=== PATIENT | female | born 2000 | race Two or more races ===

== ENCOUNTER → 2023-04-15 | Outpatient (CLI) | payer OTHER, SELFPAY ==
[2023-04-15 10:22] LABS: Red Blood Cells-Urine 0 SEEN /hpf (0-5)
[2023-04-15 10:31] LABS: Color, Urine Yellow (Yellow); Glucose, Dipstick Normal (Normal); Ketone-Dipstick 15 mg/dl (Negative); Leukocyte Esterase-Dipstick 25 /ul (Negative); Nitrite-Dipstick Positive (Negative); Occult Blood-Urine Negative /ul (Negative); Protein-Dipstick 15 mg/dl (Negative); Urine Clarity Clear (Clear); Urine Urobilinogen 4 mg/dl (Normal)
[2023-04-15 10:32] LABS: Urine Bilirubin Dipstick 3 mg/dL (Negative)
[2023-04-15 10:47] LABS: Bacteria 1+ /hpf (None Seen); Mucous, Urine 2+ /hpf (<or=2+); Squamous Epithelial Cells - UA 0-5 SEEN /hpf (5-10); White Blood Cells 0-5 SEEN /hpf (0-5)
== END | disposition home or self-care (01) ==
LOC: LABSPEC 10:16
PROVIDERS: Referring Provider Physician Assistant; Visit Provider Physician Assistant
DX: R35.0 Frequency of micturition (principal)
CPT/HCPCS: 81001; 87086; 87088; 87186

== ENCOUNTER → 2023-08-20 | Outpatient (CLI) | payer OTHER, SELFPAY ==
--- NOTE | 2023-08-20 14:55 | US_ITS ---
STUDY: ULTRASOUND OF THE FEMALE PELVIS - COMPLETE REASON FOR EXAM: Female, 23 years old. Right pelvic pain; ovarian cyst LMP: August 20, 2023. TECHNIQUE: Transabdominal and Transvaginal TECHNICAL QUALITY: Adequate. COMPARISON: None. FINDINGS: The uterus is anteverted and is in a midline position. The uterus measures 9.2 cm x 5.3 cm x 2.6 cm. Normal uterine cervix. The endometrium measures 5 mm in thickness, and is hyperechoic. There is no demonstrated endometrial mass. There is no demonstrated myometrial mass. I.U.D. - The patient does not have an I.U.D. The right ovary is visualized. The right ovary measures 5.3 cm x 4.7 cm x 2.8 cm. There is a 4.1 cm x 3.9 cm x 2 cm complex right ovarian cyst with septations. Follow-up recommended. There is no visualized right adnexal mass or complex lesion. There is normal arterial and normal venous vascularity. The left ovary is visualized. The left ovary measures 3.7 cm x 2.4 cm x 1.7 cm. There is no left ovarian cyst or ovarian mass. There is a 1.8 cm x 1.3 cm x 1 cm paraovarian cyst. There is normal arterial and normal venous vascularity. There is minimal fluid in the cul-de-sac. The pre void volume of the bladder was 391 ml. US/Pelvic w/ Transvaginal IMPRESSION: 4.1 cm x 3.9 cm x 2.0 cm complex right ovarian cyst. Follow-up recommended. This may be an hemorrhagic cyst. Follicle seen in the left paraovarian tissues. Minimal amount of free fluid is seen in the cul-de-sac. Electronically Signed: Nicko Robles MD at 15:40 EDT ,
== END | disposition home or self-care (01) ==
LOC: US 14:54
PROVIDERS: Referring Provider Nurse Practitioner Family; Visit Provider Nurse Practitioner Family
DX: N83.201 Unspecified ovarian cyst, right side (principal)
CPT/HCPCS: 76830; 76856

== ENCOUNTER → 2023-08-21 | Outpatient (CLI) | payer OTHER, SELFPAY ==
[2023-08-23 04:07] LABS: Cancer Antigen 125 25.4 U/mL (0.0-38.1); Carcinoembryonic Antigen 1.9 ng/mL (0.0-4.7)
== END | disposition home or self-care (01) ==
LOC: LAB 11:46
PROVIDERS: Referring Provider Nurse Practitioner Family; Visit Provider Nurse Practitioner Family
DX: N83.209 Unspecified ovarian cyst, unspecified side (principal)
CPT/HCPCS: 82378; 86304

== ENCOUNTER → 2023-09-23 | Outpatient (CLI) | payer OTHER, SELFPAY ==
--- NOTE | 2023-09-23 14:10 | US_ITS ---
STUDY: ULTRASOUND OF THE FEMALE PELVIS - COMPLETE REASON FOR EXAM: Female, 23 years old. Ovarian cyst evaluation LMP: September 18, 2023. TECHNIQUE: Transabdominal and Transvaginal TECHNICAL QUALITY: Adequate. COMPARISON: Comparison is made with prior study dated August 20, 2023. FINDINGS: The uterus is anteverted and is in a midline position. The uterus measures 7.9 cm x 4.9 cm x 2.8 cm. Normal uterine cervix. The endometrium measures 8 mm in thickness, and is hyperechoic. There is no demonstrated endometrial mass. There is no demonstrated myometrial mass. I.U.D. - The patient does not have an I.U.D. The right ovary is visualized. The right ovary measures 3.6 cm x 2.4 cm x 1.8 cm. Multiple sub-centimeter follicles are seen. There is no visualized right adnexal mass or complex lesion. There is normal arterial and normal venous vascularity. The left ovary is visualized. The left ovary measures 3.6 cm x 2.4 cm x 1.9 cm. Small follicles are seen. There is evidence of a residual 1.6 cm x 1.3 cm x 1 cm left paraovarian cyst. There is no visualized left adnexal mass or complex lesion. There is normal arterial and normal venous vascularity. There is no fluid in the cul-de-sac. The pre void volume of the bladder was 307 ml. US/Pelvic w/ Transvaginal IMPRESSION: Essentially stable examination. Electronically Signed: Nicko Robles MD at 15:16 EDT ,
== END | disposition home or self-care (01) ==
LOC: US 14:09
PROVIDERS: Visit Provider Nurse Practitioner Family
DX: N83.209 Unspecified ovarian cyst, unspecified side (principal)
CPT/HCPCS: 76830; 76856

== ENCOUNTER → 2023-10-01 | Outpatient (CLI) | payer OTHER, SELFPAY ==
[2023-10-01 11:02] LABS: Vitamin D,25 Hydroxy 30.6 ng/mL
[2023-10-01 11:11] LABS: AST(SGOT) 25 U/L (15-37); Alanine Aminotransfer ALT/SGPT 64 U/L (13-56); Albumin, Serum 3.9 g/dL (3.2-5.0); Alkaline Phosphatase 73 U/L (45-117); Anion Gap 4 (5-15); BUN 10 mg/dL (7-18); BUN/Creat Ratio 13.7 RATIO (10-20); Calcium,Total 9.4 mg/dL (8.5-10.1); Chloride 105 mmol/L (98-107); Cholesterol 190 mg/dL (200); Creatinine, Serum 0.73 mg/dL (0.55-1.02); EST Glomerular Filtration Rate 104 mL/min (>60); Est Glom Filt Rate - Afr Amer 126 mL/min (>60); Glucose 97 mg/dL (74-106); High Density Lipoprotein 62 mg/dL; Potassium 3.7 mmol/L (3.5-5.1); Protein, Total 7.9 g/dL (6.4-8.2); Sodium Level 137 mmol/L (136-145); T4 Free Direct 1.07 ng/dL (0.76-1.46); Thyroid Stim Hormone (TSH) 1.67 uIU/mL (0.358-3.74); Triglycerides 74 mg/dL; Very Low Density Lipoprotein 15 mg/dL (5-40)
[2023-10-06 17:16] LABS: HPV Reflexed? NOT INDICATED
== END | disposition home or self-care (01) ==
PROVIDERS: Referring Provider Nurse Practitioner Family; Visit Provider Nurse Practitioner Family
DX: Z12.4 Encounter for screening for malignant neoplasm of cervix (principal); Z13.29 Encounter for screening for other suspected endocrine disorder; Z13.220 Encounter for screening for lipoid disorders; Z13.1 Encounter for screening for diabetes mellitus; Z13.21 Encounter for screening for nutritional disorder
CPT/HCPCS: 36415; 80053; 80061; 82306; 84439; 84443; 88175; G0145

== ENCOUNTER → 2023-11-13 | Outpatient (CLI) | payer OTHER, SELFPAY ==
[2023-11-15 10:41] LABS: PROGESTERONE 4.2 ng/mL (.)
[2023-11-18 11:59] LABS: PROLACTIN 46.8 ng/mL (4.8-33.4); Testosterone Free 4.5 pg/mL (0.0-4.2)
== END | disposition home or self-care (01) ==
PROVIDERS: Referring Provider Nurse Practitioner Women's Health; Visit Provider Nurse Practitioner Women's Health
DX: N97.0 Female infertility associated with anovulation (principal)
CPT/HCPCS: 36415; 82627; 84144; 84146; 84402; 82626

== ENCOUNTER → 2023-12-09 | Outpatient (CLI) | payer OTHER, SELFPAY | END | disposition home or self-care (01) | LOC: LAB 08:34 | PROVIDERS: Referring Provider Nurse Practitioner Women's Health; Visit Provider Nurse Practitioner Women's Health | DX: E28.2 Polycystic ovarian syndrome (principal) | CPT/HCPCS: 36415; 84146 ==

== ENCOUNTER → 2023-12-26 | Outpatient (CLI) | payer OTHER, SELFPAY | END | disposition home or self-care (01) | LOC: LAB 06:09 | PROVIDERS: Referring Provider Nurse Practitioner Women's Health; Visit Provider Nurse Practitioner Women's Health | DX: N97.9 Female infertility, unspecified (principal) | CPT/HCPCS: 36415 ==

== ENCOUNTER → 2024-03-19 | Outpatient (CLI) | payer OTHER, SELFPAY ==
[2024-03-22 14:07] LABS: PROGESTERONE 0.4 ng/mL (.)
== END | disposition home or self-care (01) ==
LOC: LAB 13:54
PROVIDERS: Referring Provider Nurse Practitioner Women's Health; Visit Provider Nurse Practitioner Women's Health
DX: N97.0 Female infertility associated with anovulation (principal)
CPT/HCPCS: 36415; 84144

== ENCOUNTER → 2024-04-20 | Outpatient (CLI) | payer OTHER, SELFPAY ==
[2024-04-21 14:08] LABS: PROGESTERONE 0.8 ng/mL (.)
== END | disposition home or self-care (01) ==
LOC: LAB 09:50
PROVIDERS: Referring Provider Nurse Practitioner Women's Health; Visit Provider Nurse Practitioner Women's Health
DX: N97.0 Female infertility associated with anovulation (principal)
CPT/HCPCS: 36415; 84144

== ENCOUNTER 2024-05-20 11:06 | Emergency (ER) | payer OTHER, SELFPAY ==
[2024-05-20 11:06] VITALS: BP 124/77; PULSE 87; RESP 14; TEMP 36.4; O2SAT 100; BMI 25.6
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
[2024-05-20 12:47] VITALS: BP 124/70; PULSE 72; RESP 15; TEMP 36.2; O2SAT 99
== END 2024-05-20 12:48 | disposition home or self-care (01) ==
PROVIDERS: Emergency Provider Emergency Medicine; PCP Internal Medicine; Visit Provider Emergency Medicine
DX: S16.1XXA Strain of muscle, fascia and tendon at neck level, initial encounter (principal); S20.20XA Contusion of thorax, unspecified, initial encounter; S70.11XA Contusion of right thigh, initial encounter; V44.5XXA Car driver injured in collision with heavy transport vehicle or bus in traffic accident, initial encounter
CPT/HCPCS: 71046; 72040; 99282

== ENCOUNTER → 2024-05-24 | Outpatient (CLI) | payer OTHER, SELFPAY ==
[2024-05-26 04:07] LABS: PROGESTERONE 11.8 ng/mL (.)
== END | disposition home or self-care (01) ==
LOC: LAB 09:01
PROVIDERS: Registered Nurse; PCP Internal Medicine; Referring Provider Nurse Practitioner Women's Health; Visit Provider Nurse Practitioner Women's Health
DX: N97.0 Female infertility associated with anovulation (principal)
CPT/HCPCS: 36415; 84144

== ENCOUNTER → 2024-06-21 | Outpatient (CLI) | payer OTHER, SELFPAY ==
[2024-06-22 04:07] LABS: PROGESTERONE 12.2 ng/mL (.)
== END | disposition home or self-care (01) ==
LOC: LAB 08:59
PROVIDERS: PCP Internal Medicine; Referring Provider Nurse Practitioner Women's Health; Visit Provider Nurse Practitioner Women's Health
DX: N97.0 Female infertility associated with anovulation (principal)
CPT/HCPCS: 36415; 84144

== ENCOUNTER → 2024-07-20 | Outpatient (CLI) | payer OTHER, SELFPAY ==
[2024-07-21 04:07] LABS: PROGESTERONE 17.1 ng/mL (.)
== END | disposition home or self-care (01) ==
PROVIDERS: PCP Internal Medicine; Referring Provider Nurse Practitioner Women's Health; Visit Provider Nurse Practitioner Women's Health
DX: N97.0 Female infertility associated with anovulation (principal)
CPT/HCPCS: 36415; 84144

== ENCOUNTER → 2024-08-04 | Outpatient (CLI) | payer OTHER, SELFPAY ==
--- NOTE | 2024-08-04 12:00 | RAD_ITS ---
PROCEDURE: SALPINGOGRAM 08/04/2024 REASON FOR EXAM: INFERTILITY TECHNIQUE: One (1) Cine series/run COMPARISON: No relevant prior. FINDINGS: Uterus: Balloon tipped catheter seen in the lower uterine segment. No abnormal intrauterine filling defects. No uterine cornua abnormalities. Fallopian tubes: Normal caliber. Prompt spillage of contrast from the fallopian tubes. Fluoroscopy: 39 sec Dose: 4.93 mGy RAD/Salpingogram IMPRESSION: 1. Normal hysterosalpingogram. Reading Location: [facility]
--- NOTE | 2024-08-04 12:31 | PRO.PCM_ITS ---
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 Speculum was placed in the vagina and the cervix prepped with Betadine and the HSG catheter was easily introduced into the uterus and speculum removed. Radiologist was brought in and while pushing radiopaque dye into the uterus via the HSG catheter the radiologist took multiple images and views and confirmed bilateral tubal patency seen. No gross uterine filling defects or abnormalities were seen. All in struments removed from the vagina and the uterus without complication. Patient tolerated the procedure well. Procedure findings: it appears that there are patent bilateral fallopian tubes, normal uterus, normal cervix. Complications Complications: No
== END | disposition home or self-care (01) ==
LOC: RAD 11:57
PROVIDERS: PCP Internal Medicine; Referring Provider Nurse Practitioner Women's Health; Visit Provider Nurse Practitioner Women's Health
DX: N97.0 Female infertility associated with anovulation (principal)
CPT/HCPCS: 58340; 74740

== ENCOUNTER → 2024-08-26 | Outpatient (CLI) | payer OTHER, SELFPAY | END | disposition home or self-care (01) | LOC: LABSPEC 16:30 | PROVIDERS: PCP Internal Medicine; Visit Provider Physician Assistant Surgical | DX: R39.15 Urgency of urination (principal) | CPT/HCPCS: 87086 ==

== ENCOUNTER → 2024-09-30 | Outpatient (CLI) | payer OTHER, SELFPAY ==
[2024-09-30 12:16] LABS: Absolute Neutrophil Count 5.5 X10^3/uL (2.0-7.7); Basophil# 0.02 X10^3/uL; Basophil% 0.3 % (0-1); Eosinophil# 0.04 X10^3/uL; Eosinophils% 0.5 % (0-5); Hematocrit 40.1 % (37-47); Hemoglobin 13.6 g/dL (12.0-15.0); Lymphocyte % 16.3 % (19-41); Mean Corp Hgb Conc 33.9 g/dL (32-36); Mean Corpuscular Hgb 30.5 pg (27.0-32.0); Mean Corpuscular Volume 89.9 fL (81-99); Mean Platelet Vol. 9.4 fl (6.2-12.0); Monocyte# 0.65 X10^3/uL; Monocyte% 8.8 % (0-10); NRBC Flagged by Analyzer 0 % (0-5); Neutrophil # 5.45 X10^3/uL (2.7-7.7); Neutrophil % 73.8 % (47-70); Platelet Count 320 K/mm3 (150-450); RBC Distribution Width CV 12.4 % (11.6-14.6); RBC Distribution Width SD 40.5 fl (35.1-43.9); Red Blood Count 4.46 M/mm3 (4.2-5.4); White Blood Count 7.4 K/mm3 (4.4-11.0)
[2024-09-30 13:25] LABS: Hemoglobin A1c 5.1 % (<=5.6)
[2024-09-30 13:31] LABS: HIV Nonreactive (Nonreactive); Hepatitis B Surface Antigen Nonreactive (Nonreactive); Hepatitis C Antibody Nonreactive (Nonreactive); Rubella IgG REAC (Nonreactive); Syphilis Antibodies Nonreactive (Nonreactive)
--- OUTSIDE RECORDS SUMMARY | 2024-09-30 19:23 | XMS RPT_ITS | CCD ---
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 Recent annual exam and pap with health screen labs/nl with Kasey Barboza NP Menses every 28-30 days lasting 4 days. No contraction X 2 years and actively attempting X 10 months. Home OPT does not show ovulation No previous pregnancies for patient or (Bryson) Dysmenorrhea: some cramping. 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 [employer] surgery any additional risk factors identified: no Female Reproductive History Last Menstrual Period: 10/22/23 Cycle Length: 21-35 Questions: metorrhagia: No, sexually active: Yes, dyspareunia: No and PCB: No History 0 Elective abortions Hx Para Spontaneous abortions Hx # Term Pregnancies Ectopic pregnancies Hx # Pregnancies Multiple births # of living children ROS Const Constitutional: Reports system reviewed and no additional complaints, except as documented Eyes Eyes: Reports system reviewed and no additional complaints, except as documented GI GI: Denies abdominal pain or change in bowel habits : Reports as per HPI Exam Const General: cooperative and no acute distress Orientation: oriented x3 HENMT Head: normal to inspection and normocephalic Eyes General: appearance normal, both eyes and all related structures Neck Neck: normal visual inspection Resp Effort Inspection: normal respiratory effort Neuro Cognition: normal cognition Speech: speech normal Psych Appearance: grossly normal Mood: congruent mood Affect: normal affect Speech and Movement: speech and movement normal Attitude: cooperative Judgment: judgment good Coding Level of Care Code Off vis,est,level 4 Diagnoses PCOS (polycystic ovarian syndrome) E28.2 Cyst of ovary, unspecified laterality N83.209 Laterality: unspecified laterality 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 Discussed letrozole Plan Will get day 21 progesterone tomorrow. Today's OPT was negative Day 3 labs and also semen analysis for partner (Bryson Berg) Discussed use, benefits, risks and side effects of letrozole. Written information given. Management dep (more content not included)... Normal [facility] Basophil percentageOrdered B y: Suleiman Connelly on 04-15-2023 Basophil percentage 0-5 SEEN /hpf 0-5 [facility] Bilirubin Test strip Ql (U)O rdered By: Suleiman Connelly on 04-15-2023 Bilirubin Ql (U) 3 mg/dL Negative [facility] Comment on above: COLOR OF URINE MAY A FFECT DIPSTICK RESULTS. Culture, urineOrdered By: St ishan Connelly on 04-15-2023 Bacteria identified Cx Nom (U) Presumptive E. coli [facility] Ketones Test strip Ql (U)Ord ered By: Suleiman Connelly on 04-15-2023 Ketones Ql (U) 15 mg/dl Negative [facility] - Chemistry and C hemistry - challengeon 04-15-2023 HCG ( test) Ql (U) Negative [facility] Bilirubin Ql (U) Negative [facility] Glucose Ql (U) Negative [facility] Ketones Ql (U) Negative [facility] pH (U) 6.0 [pH] [facility] Specific gravity (U) [Rel density] 1.020 [facility] Urobilinogen (U) [Mass/Vol] Negative [facility] - Hematology and Cell countson 04-15-2023 Hemoglobin Ql (U) Negative [facility] - Specimen inform ationon 04-15-2023 Clarity (U) Clear [facility] Color (U) ORANGE [facility] - Urinalysison Nitrite Ql (U) Negative [facility] Protein Ql (U) Negative [facility] Mucus LM Ql (Urine sed)Order ed By: Suleiman Connelly on 04-15-2023 Mucus Ql (Urine sed) 2+ /hpf [facility] Nitrite Test strip Ql (U)Ord ered By: Suleiman Connelly on 04-15-2023 Nitrite Ql (U) Positive Negative [facility] No Panel Informationon 04-15 Urine Leukocytes Negatve [facility] Urine Non-Hemolyzed Blood Negative [facility] Protein Test strip Ql (U)Ord ered By: Suleiman Connelly on 04-15-2023 Protein Ql (U) 15 mg/dl Negative [facility] Squamous epithelial cells de tection in urine sediment by light microscopyOrdered By: Suleiman Connelly on 04-15-2023 Epithelial cells.squamous LM Ql (Urine sed) 0-5 SEEN /hpf 5-10 [facility] Urine blood detectionOrdered By: Suleiman Connelly on 04-15-2023 RBC Ql (U) Negative Negative [facility] RBC Ql (U) 0 SEEN /hpf 0-5 [facility] Urine clarityOrdered By: Kane Connelly on 04-15-2023 Clarity (U) Clear Clear [facility] Urine color determinationOrd ered By: Suleiman Connelly on 04-15-2023 Color (U) Yellow Yellow [facility] Urine glucose detectionOrder ed By: Suleiman Connelly on 04-15-2023 Glucose Ql (U) Normal mg/dl Normal [facility] Urine leukocyte esterase det ection by dipstickOrdered By: Suleiman Connelly on 04-15-2023 Leukocyte esterase Test strip Ql (U) 25 /ul Negative [facility] Urine pHOrdered By: Suleiman chambers on 04-15-2023 pH (U) 6.0 [pH] 5.0 - 8.0 [facility] Urine sediment bacteria coun t by microscopy (number/high power field)Ordered By: Suleiman Connelly on 04-15-2023 Bacteria LM.HPF (Urine sed) [#/Area] 1 /[HPF] None Seen [facility] Urine specific gravity measu rementOrdered By: Suleiman Connelly on 04-15-2023 Specific gravity (U) [Rel density] 1.020 1.002-1.030 [facility] Urobilinogen Auto test strip Ql (U)Ordered By: Suleiman Connelly on 04-15-2023 Urobilinogen Ql (U) 4 mg/dl Normal [facility] POCT URINALYSIS DIPSTICKon 0 12-07-2021 BILIRUBIN, POC Negative Normal Negative [facility] Comment on above: Performed By: #### P OC5 #### [address] [address] BLOOD URINE, POC Negative Normal Negative [facility] Comment on above: Performed By: #### P OC5 #### [address] [address] CLARITY, POC Clear Normal [facility] Comment on above: Performed By: #### P OC5 #### [address] [address] COLOR, POC Yellow Normal [facility] Comment on above: Performed By: #### P OC5 #### [address] [address] GLUCOSE URINE, POC Negative Normal Negative [facility] Comment on above: Performed By: #### P OC5 #### [address] [address] LEUKOCYTE EST, POC Trace Abnormal Negative [facility] Comment on above: Performed By: #### P OC5 #### [address] [address] NITRITE, POC Negative Normal Negative [facility] Comment on above: Performed By: #### P OC5 #### [address] [address] PH, POC 6.5 Normal [facility] Comment on above: Performed By: #### P OC5 #### [address] [address] PROTEIN, POC Negative Normal Negative [facility] Comment on above: Performed By: #### P OC5 #### [address] [address] SPECIFIC GRAVITY, POC 1.[address] [facility] Comment on above: Performed By: #### P OC5 #### [address] [address] URINE KETONES, POC Negative Normal Negative [facility] Comment on above: Performed By: #### P OC5 #### [address] [address] UROBILINOGEN, POC 0.2 Normal 0.2-1.0 [facility] Comment on above: Performed By: #### P OC5 #### [address] [address] Urinalysis macro (dipstick) panel (U)on 12-07-2021 Bilirubin, UA Negative Negative [facility] Blood, UA Negative Negative [facility] Clarity, UA Clear [facility] Color, UA Yellow [facility] Glucose, UA Negative Negative [facility] Interpretation and review of laboratory results Abnormal [facility] Ketones (U) [Mass/Vol] Negative Negative [facility] Leukocytes, UA Trace Abnormal Negative [facility] Nitrite, UA Negative Negative [facility] pH, UA 6.5 [facility] Protein, UA Negative Negative [facility] Spec Grav, UA 1.020 [facility] Urobilinogen, UA 0.2 0.2 - 1.0 [facility] HEPATITIS B SURFACE ANTIBODY on 06-11-2021 HEPATITIS B VIRUS SURFACE AB PRESENCE IN SERUM Non-Reactive Abnormal Reactive [facility] Comment on above: Result Comment: REFERENCE RANGE: NONREACTIVE: Patient is considered not immune to infection with HBV. REACTIVE: Patient is considered to be immune to infection with HBV. Performed By: #### L [id number] #### [facility] [address] [place] [address] RUBELLA ANTIBODY, IGGon RUBELLA IGG SCREEN Reactive Normal [facility] Comment on above: Result Comment: *Non-Reactive: Antibody level may be insufficient to provide protection against Rubella virus infection. *Indeterminate: Repeat testing in 1-2 weeks may help clarify. *Reactive: Indicates current or past infection or vaccination. Performed By: #### L [id number] #### [facility] [address] [place] [address] OBSOLETEon 01-14-2021 OBSOLETE Refill (NATALY) CAROLINA MARTINEZ ([id number]) 1 F Date Time Provider Department 01/14/21 JUDITH BUTLER During your visit today, we recorded the following information about you: Allergies As of Date: 01/14/2021 (No Known Allergies) Date Reviewed: 11/21/2020 Reviewed by: Judith Butler APRN.CHAIR INSPECTOR - Fully Assessed Reason for Visit: Refill Request [94] Visit Diagnosis:Encounter for surveillance of contraceptive pills [Z30.41] Prescriptions as of 01/15/2021 - Desogestrel-Ethinyl Estradiol (APRI) 0.15-0.03 mg per tablet Take 1 tablet by mouth once daily. Problem List As Of Date 01/14/2021 Noted Resolved Gastroesophageal reflux disease without esophag*07/08/2016 Acne vulgaris [L70.0] 07/08/2016 Encounter Status:Closed by LEANNE MIDDLETON RN on 01/15/21 [facility] CNOVon 11-21-2020 CNOV Office Visit ([facility] ) CAROLINA MARTINEZ [place] ([id number]) 1 F Date Time Provider Department 11/21/20 1:00 PM JUDITH BUTLER During your visit today, we recorded the following information about you: Blood pressure Weight Height Last Period 11668 54.4 kg 1.588 m 11/02/20 Judith Butler APRN.CHAIR INSPECTOR 11/21/2020 1:43 PM Signed Carolina is a 20 year old who presents for an annual gynecologic exam without complaints. Getting and graduating from [employer] for ultrasound - both in August. Presents: with parent Menses: cycles every 28 days and 2-3 days of flow. Contraception: combined hormonal contraceptives HPV vaccine: No Last pap smear: never Sexually active: Never OB History T0 L0 SAB0 TAB0 Ectopic0 Multiple0 Live Births0 PAST MEDICAL HISTORY Diagnosis Date - Acid reflux - acne PAST SURGICAL HISTORY Procedure Laterality Date - NONE FAMILY HISTORY Problem Relation Age of Onset - Asthma Brother - Allergies Brother - Hypertension Mother - Hyperlipidemia Mother - Hypertension Father - other (Gastric Ulcer) Father - other (Reflux) Father - Hypertension Maternal Grandmother - Hypertension Maternal Grandfather - Diabetes Paternal Grandmother - GI Paternal Grandmother - Breast Cancer Paternal Grandmother 65 - Diabetes Paternal Grandfather - Heart Paternal Grandfather MA - No Known Problems Sister - Asthma Brother - Allergies Brother SOCIAL HISTORY Social History Tobacco Use - Smoking status: Never Smoker - Smokeless tobacco: Never Used Vaping Use - Vaping Use: Never used Substance Use Topics - Alcohol use: No - Drug use: No REVIEW OF SYSTEMS Abdomen: No bloating, early satiety, indigestion, or increased flatulence. No abdominal pain, nausea, vomiting, diarrhea, or constipation. Bladder: No dysuria, gross hematuria, urinary frequency, urinary urgency, or incontinence. Breast: No breast lumps, nipple d/c, overlying skin changes, redness or skin retraction. Allergies and current medication updated:Yes EXAM: BP 116/68 Ht 5' 2.5 (1.59m) Wt 120 lb (54.4kg) LMP 11/02/2020 BMI 21.59 kg/(m2). GENERAL: pleasant, in no apparent distress HEENT: Normocephalic, atraumatic, mucus membranes moist and no lesions NECK: Supple, full range of motion, no adenopathy and thyroid normal DERMATOLOGY: Normal, without lesions, non-icteric and non-hirsute BREAST: deferred CHEST: Normal inspiratory effort ABDOMEN: soft and non-tender PELVIC: deferred BIMANUAL: deferred NEURO: alert and oriented x3,exam grossly non-focal EXTREMITIES: normal ASSESSMENT/PLAN: 1) Health maintenance: Pap starting at the age of 21. Safe sex practices reviewed. Nutrition, exercise, and routine health maintenance exams reviewed. HPV vaccine discussed and declined. 2) Contraception: combined hormonal contraceptives. Contraceptive options reviewed and information provided. 3) STD screening: Declined STD check. 4) Follow up one year or sooner as needed. Judith Butler APRN.LAUREN Referring Provider: SELF [200] Allergies As of Date: 11/21/2020 (No Known Allergies) Date Reviewed: 11/21/2020 Reviewed by: Judith Butler APRN.CHAIR INSPECTOR - Fully Assessed Reason for Visit: Yearly Exam [187] Primary Visit Diagnosis:Encounter for gynecological examination (general) (routine) without abnormal findings [Z01.419] Other Visit Diagnosis:Encounter for surveillance of contraceptive pills [Z30.41] Order(s):Desogestrel- Ethinyl Estradiol (APRI) 0.15-0.03 mg per tabletTake 1 tablet by mouth once daily.Disp: 3 PackageRfl: 3 Prescriptions as of 11/21/2020 - Desogestrel-Ethinyl Estradiol (APRI) 0.15-0.03 mg per tablet Take 1 tablet by mouth once daily. Problem List As Of Date 11/21/2020 Noted Resolved Gastroesophageal reflux disease without esophag*07/08/2016 Acne vulgaris [L70.0] 07/08/2016 Prescriptions ordered this encounter Disp Refills Start End DESOGESTREL 0.15 MG-ETHINYL ESTRADIO* 3 Pa* 3 11/21/2020 Route: ORAL Sig: Take 1 tablet by mouth once daily. Medications Discontinued During This Encounter Prescriptions - APRI 0.15-0.03 mg per tablet (Discontinued) TAKE 1 TABLET BY MOUTH EVERY DAY Disposition: Return in 1 year (on 11/21/2021) for Annual Exam. Follow-up and Disposition History Recorded Encounter Status:Closed by JUDITH BUTLER on 11/21/20 [facility] OBSOLETEon 08-29-2020 OBSOLETE Refill (WOOB) CAROLINA MARTINEZ ([id number]) 1 F Date Time Provider Department 08/29/20 JUDITH BUTLER During your visit today, we recorded the following information about you: Leanne Middleton RN 08/29/2020 8:27 AM Signed Patient cancelled her July annual exam. PSS- Please contact patient to assist with rescheduling. Pending Prescriptions Disp Refills APRI 0.15 MG-0.03 MG TABLET 56 tablet 0 Sig: TAKE 1 TABLET BY MOUTH EVERY DAY TESSIE: Yes Last annual exam: 03/11/19 Please approve the above prescription(s) to electronically send to pharmacy. Leanne Isaac 08/31/2020 2:22 PM Signed 1st attempt: could not leave msg for pt (on mobile) but left msg with Mom at home to have her call and schedule appt. Allergies As of Date: 08/29/2020 (No Known Allergies) Date Reviewed: 03/18/2019 Reviewed by: Delia Gallagher) ANNA Sarmiento - Fully Assessed Reason for Visit: Refill Request [94] Visit Diagnoses:Encounter for surveillance of contraceptive pills [Z30.41] Irregular menses [N92.6] Order(s):APRI 0.15-0.03 mg per tabletTAKE 1 TABLET BY MOUTH EVERY DAYDisp: 56 tabletRfl: 0 Prescriptions as of 08/29/2020 Sig: APRI 0.15 MG-0.03 MG TABLET TAKE 1 TABLET BY MOUTH EVERY * Problem List As Of Date 08/29/2020 Noted Resolved Gastroesophageal reflux disease without esophag*07/08/2016 Acne vulgaris [L70.0] 07/08/2016 Prescriptions ordered this encounter Disp Refills Start End APRI 0.15 MG-0.03 MG TABLET 56 t* 0 08/29/2020 Sig: TAKE 1 TABLET BY MOUTH EVERY DAY Medications Discontinued During This Encounter Prescriptions - APRI 0.15-0.03 mg per tablet (Discontinued) TAKE 1 TABLET BY MOUTH EVERY DAY Encounter Status:Closed by WILFRIDO ISAAC on 08/31/20 [facility] OBSOLETEon 07-06-2020 OBSOLETE Refill (WOOB) CAROLINA MARTINEZ ([id number]) 1 F Date Time Provider Department 07/06/20 JOSEP CARLSON (LAUREN) WOOB During your visit today, we recorded the following information about you: Leanne Middleton RN 07/06/2020 8:20 AM Signed Received refill request. Last extension given 05/15/20. PSS- Please attempt to reach patient to schedule annual exam. Thank you. Pending Prescriptions Disp Refills APRI 0.15 MG-0.03 MG TABLET 56 tablet 0 Sig: TAKE 1 TABLET BY MOUTH EVERY DAY TESSIE: Yes Last annual exam: 03/11/19 Please approve the above prescription(s) to electronically send to pharmacy. 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 Marci Ellison Allergies As of Date: 07/06/2020 (No Known Allergies) Date Reviewed: 03/18/2019 Reviewed by: Delai Gallagher) ANNA Sarmiento - Fully Assessed Reason for Visit: Refill Request [94] Visit Diagnoses:Encounter for surveillance of contraceptive pills [Z30.41] Irregular menses [N92.6] Order(s):APRI 0.15-0.03 mg per tabletTAKE 1 TABLET BY MOUTH EVERY DAYDisp: 56 tabletRfl: 0 Prescriptions as of 07/06/2020 Sig: APRI 0.15 MG-0.03 MG TABLET TAKE 1 TABLET BY MOUTH EVERY * Problem List As Of Date 07/06/2020 Noted Resolved Gastroesophageal reflux disease without esophag*07/08/2016 Acne vulgaris [L70.0] 07/08/2016 Prescriptions ordered this encounter Disp Refills Start End APRI 0.15 MG-0.03 MG TABLET 56 t* 0 07/06/2020 Sig: TAKE 1 TABLET BY MOUTH EVERY DAY Medications Discontinued During This Encounter Prescriptions - APRI 0.15-0.03 mg per tablet (Discontinued) TAKE 1 TABLET BY MOUTH EVERY DAY Encounter Status:Closed by MARCI VITAL on 07/16/20 Normal [facility] Vital Signs Date Time Vital Sign Value Performing Clinician Bryan dubose 09-30-2024 08:40-0400 Body height 157.[address] Nadine Little MD Work Phone: [facility] 09-30-2024 08:38-0400 Body mass index (BMI) [Ratio] 24.9 kg/m2 Dr. Nadine Little MD Work Phone: [facility] 09-30-2024 08:38-0400 Body weight 61.[address] Nadine Little MD Work Phone: [facility] 09-30-2024 08:38-0400 Diastolic blood pressure 83 mm[Hg] Dr. Nadine Little MD Work Phone: [facility] 09-30-2024 08:38-0400 Systolic blood pressure 133 mm[Hg] Dr. Nadine Little MD Work Phone: [facility] 08-26-2024 16:11-0400 Body temperature 98.6 [degF] Dr. Mo Valdez Work Phone: [facility] 08-26-2024 16:11-0400 Diastolic blood pressure 62 mm[Hg] Dr. Mo Valdez Work Phone: [facility] 08-26-2024 16:11-0400 Heart rate 90 /min Dr. Mo Valdez Work Phone: [facility] 08-26-2024 16:11-0400 SaO2% (BldA) [Mass fraction] 100 % Dr. Mo Valdez Work Phone: [facility] 08-26-2024 16:11-0400 Systolic blood pressure 118 mm[Hg] Dr. Mo Valdez Work Phone: [facility] 08-11-2024 11:47-0400 Body height 157.48 cm No Primary Care Physician [facility] 08-11-2024 11:44-0400 Body mass index (BMI) [Ratio] 24.8 kg/m2 No Primary Care Physician [facility] 08-11-2024 11:44-0400 Body weight 61.68 kg No Primary Care Physician [facility] 08-11-2024 11:44-0400 Diastolic blood pressure 70 mm[Hg] No Primary Care Physician [facility] 08-11-2024 11:44-0400 Systolic blood pressure 110 mm[Hg] No Primary Care Physician [facility] 05-20-2024 12:47-0500 Body temperature 97.1 [degF] No Primary Care Physician [facility] 05-20-2024 12:47-0500 Diastolic blood pressure 70 mm[Hg] No Primary Care Physician [facility] 05-20-2024 12:47-0500 Heart rate 72 /min No Primary Care Physician [facility] 05-20-2024 12:47-0500 Respiratory rate 15 /min No Primary Care Physician [facility] 05-20-2024 12:47-0500 SaO2% (BldA) [Mass fraction] 99 % No Primary Care Physician [facility] 05-20-2024 12:47-0500 Systolic blood pressure 124 mm[Hg] No Primary Care Physician [facility] 05-20-2024 11:06-0500 Body height 157.48 cm No Primary Care Physician [facility] 05-20-2024 11:06-0500 Body mass index (BMI) [Ratio] 25.6 kg/m2 No Primary Care Physician [facility] 05-20-2024 11:06-0500 Body weight 63.5 kg No Primary Care Physician [facility] 03-24-2024 09:02-0500 Body mass index (BMI) [Ratio] 25.6 kg/m2 No Primary Care Physician [facility] 03-24-2024 09:02-0500 Body temperature 97.7 [degF] No Primary Care Physician [facility] 03-24-2024 09:02-0500 Body weight 63.5 kg No Primary Care Physician [facility] 03-24-2024 09:02-0500 Diastolic blood pressure 72 mm[Hg] No Primary Care Physician [facility] 03-24-2024 09:02-0500 Heart rate 92 /min No Primary Care Physician [facility] 03-24-2024 09:02-0500 Respiratory rate 16 /min No Primary Care Physician [facility] 03-24-2024 09:02-0500 SaO2% (BldA) [Mass fraction] 98 % No Primary Care Physician [facility] 03-24-2024 09:02-0500 Systolic blood pressure 118 mm[Hg] No Primary Care Physician [facility] 04-15-2023 08:26-0500 Body height 157.48 cm DANIELLE SANTOS Work Phone: [facility] 04-15-2023 08:26-0500 Body mass index (BMI) [Ratio] 26.3 kg/m2 PA Suleiman Connelly PA Work Phone: [facility] 04-15-2023 08:26-0500 Body temperature 98 [degF] PA Suleiman Connelly PA Work Phone: [facility] 04-15-2023 08:26-0500 Body weight 65.31 kg PA Suleiman Connelly PA Work Phone: [facility] 04-15-2023 08:26-0500 Diastolic blood pressure 78 mm[Hg] PA Suleiman Connelly PA Work Phone: [facility] 04-15-2023 08:26-0500 Heart rate 91 /min PA Suleiman Connelly PA Work Phone: [facility] 04-15-2023 08:26-0500 Respiratory rate 12 /min PA Suleiman Connelly PA Work Phone: [facility] 04-15-2023 08:26-0500 SaO2% (BldA) [Mass fraction] 97 % PA Suleiman Connelly PA Work Phone: [facility] 04-15-2023 08:26-0500 Systolic blood pressure 110 mm[Hg] PA Suleiman Connelly PA Work Phone: [facility] 12-07-2021 19:51-0400 Body temperature 97.2 [degF] Edmund Wall PA-C Work Phone: [facility] 12-07-2021 19:51-0400 Body weight 54.43 kg Edmund Wall PA-C Work Phone: [facility] 12-07-2021 19:51-0400 Diastolic blood pressure 88 mm[Hg] Edmund Wall PA-C Work Phone: [facility] 12-07-2021 19:51-0400 Heart rate 85 /min Edmund Wall PA-C Work Phone: [facility] 12-07-2021 19:51-0400 Respiratory rate 16 /min Edmund Wall PA-C Work Phone: [facility] 12-07-2021 19:51-0400 SaO2% (BldA) [Mass fraction] 98 % Edmund Wall PA-C Work Phone: [facility] 12-07-2021 19:51-0400 Systolic blood pressure 128 mm[Hg] Edmund Wall PA-C Work Phone: [facility] Encounters Encounter Date Encounter Type Care Provider Facility Start: 10-04-2024 ambulatory Leanne Hairston cility:[facility] Start: 09-30-2024 End: 09-30-[address] Freya Velasquez MD [place] Work Phone: Start: 09-30-2024 End: 09-30-[address] Nadine Little MD Work Phone: [facility] Work Phone: Start: 09-21-2024 End: 09-21-[address] Leanne Griffin DO -[facility] Work Phone: Start: 09-21-2024 End: 09-21-[address] Nadine Little MD Work Phone: [facility] Work Phone: Start: 08-26-2024 End: 08-26-2024 Patient encounter procedure Mehul SANTOS -[facility] Work Phone: Start: 08-26-2024 End: 08-26-[address] Mo Valdez Work Phone: [facility] Work Phone: Start: 08-26-2024 End: 08-26-2024 ambulatory Mehul SANTOS Facility:[facility] Start: 08-11-2024 End: 08-11-2024 Patient encounter procedure Mimi LOPEZC -[facility] [place] Work Phone: Start: 08-11-2024 End: 08-11-2024 ambulatory Nadine Anabel Facility:[facility] Start: 08-04-2024 Non-patient / Non-visit Dr. Leanne Griffin DO -[facility] Start: 08-04-2024 End: 08-04-2024 ambulatory No Primary Care Physician [facility] Work Phone: Start: 08-04-2024 End: 08-04-2024 Patient encounter procedure Mimi Castillo CRIMINAL JUSTICE PROFESSOR-C -Radiology, [facility] Work Phone: Start: 08-04-2024 End: 08-04-2024 ambulatory Nadine Poulsbo Facility:[facility] Start: 07-20-2024 End: 07-20-2024 Patient encounter procedure Mimi Anna CRIMINAL JUSTICE PROFESSOR-C -Laboratory Work Phone: Start: 07-20-2024 End: 07-20-2024 ambulatory Nadine Anabel Facility:[facility] Start: 06-21-2024 End: 06-21-2024 ambulatory No Primary Care Physician [facility] Work Phone: Start: 06-21-2024 End: 06-21-2024 Patient encounter procedure Mimi Anna CRIMINAL JUSTICE PROFESSOR-C -Laboratory Work Phone: Start: 06-21-2024 End: 06-21-2024 ambulatory Mimi Anna CRIMINAL JUSTICE PROFESSOR Facility:[facility] Start: 05-24-2024 End: 05-24-2024 Patient encounter procedure Mimi Anna CRIMINAL JUSTICE PROFESSOR-C -Laboratory Work Phone: Start: 05-24-2024 End: 05-24-2024 ambulatory Mimi Anna CRIMINAL JUSTICE PROFESSOR Facility:[facility] Start: 05-20-2024 End: 05-20-2024 Emergency department patient visit Dr. Mo Valdez -Emergency Department Work Phone: Start: 04-20-2024 End: 04-20-2024 Patient encounter procedure Mimi Hernshaw CRIMINAL JUSTICE PROFESSOR-C -Laboratory Work Phone: Start: 04-20-2024 End: 04-20-2024 ambulatory Mimi Castillo CRIMINAL JUSTICE PROFESSOR Facility:[facility] Start: 03-24-2024 End: 03-24-[address] Nadine Little MD -[facility] Work Phone: Start: 03-24-2024 End: 03-24-2024 ambulatory Nadine Little Facility:[facility] Start: 03-19-2024 End: 03-19-2024 Patient encounter procedure Mimi Castillo CRIMINAL JUSTICE PROFESSOR-C -Laboratory Work Phone: Start: 03-19-2024 End: 03-19-2024 ambulatory No Primary Care Physician Facility:[facility] Start: 12-26-2023 End: 12-26-2023 ambulatory No Primary Care Physician Facility:[facility] Start: 12-09-2023 End: 12-09-2023 ambulatory No Primary Care Physician Facility:[facility] Start: 11-12-2023 End: 11-13-2023 ambulatory No Primary Care Physician Facility:[facility] Start: 04-15-2023 End: 04-15-2023 ambulatory DANIELLE SANTOS Work Phone: [facility] Work Phone: Start: 04-15-2023 End: 04-15-2023 Patient encounter procedure DANIELLE SANTOS Work Phone: [facility]-Laboratory, Specimen Work Phone: Start: 04-15-2023 End: 04-15-2023 Patient encounter procedure DANIELLE SANTOS Work Phone: [facility] Work Phone: Start: 12-07-2021 End: 12-07-2021 ambulatory EDMUND ARITA [facility] Start: 12-07-2021 End: 12-07-2021 Office outpatient visit 15 minutes Edmund Arita PA-C Work Phone: [facility] Comment on above: Dysuria (Primary Dx) ; Urinary urgency Start: 07-09-2021 Refill Judith HASTINGS RN.CHAIR INSPECTOR Work Phone: OB/Gynecology Comment on above: Refill Request Procedures Date Procedure Procedure Detail Performing Clinician Start: 08-26-[address] Mo Ortiz DO Work Phone: Start: 08-04-2024 Imaging of abdomen No P [facility] Care Physician Start: 07-20-2024 Serum progesterone measurement No Primary Care Physician Comment on above: Follicular phase 0.1 - 0.9 Luteal phase 1.8 - 23.9 Ovulation phase 0.1 - 12.0 First trimester 11.0 - 44.3 Second trimester 25.4 - 83.3 Third trimester 58.7 - 214.0 Postmenopausal 0.0 - 0.1Performed at: [employer] [address] [place], [place] [id number] Director: Will Mackey PhD, Phone: [phone] Start: 06-21-2024 Serum progesterone measurement No Primary Care Physician Comment on above: Follicular phase 0.1 - 0.9 Luteal phase 1.8 - 23.9 Ovulation phase 0.1 - 12.0 First trimester 11.0 - 44.3 Second trimester 25.4 - 83.3 Third trimester 58.7 - 214.0 Postmenopausal 0.0 - 0.1Performed at: [facility] [id number] [place], [place] [id number] Director: Will Mackey PhD, Phone: [phone] Start: 05-24-2024 Serum progesterone measurement No Primary Care Physician Comment on above: Follicular phase 0.1 - 0.9 Luteal phase 1.8 - 23.9 Ovulation phase 0.1 - 12.0 First trimester 11.0 - 44.3 Second trimester 25.4 - 83.3 Third trimester 58.7 - 214.0 Postmenopausal 0.0 - 0.1Performed at: [employer] [address] [place], [place] [id number] Director: Will Mackey PhD, Phone: [phone] Start: 05-20-2024 X-ray of cervical spine No Primary Care Physician Start: 05-20-2024 X-ray of chest, PA a nd lateral views No Primary Care Physician Start: 04-20-2024 Serum progesterone measurement No Primary Care Physician Comment on above: Follicular phase 0.1 - 0.9 Luteal phase 1.8 - 23.9 Ovulation phase 0.1 - 12.0 First trimester 11.0 - 44.3 Second trimester 25.4 - 83.3 Third trimester 58.7 - 214.0 Postmenopausal 0.0 - 0.1Performed at: [facility] - [facility] [address] [id number] Director: Will Mackey PhD, Phone: [phone] Start: 04-15-2023 Urine culture DANIELLE SANTOS Work Phone: Start: 12-07-2021 Urnls dip stick/tabl et rgnt auto w/o microscopy Edmund Arita PA-C Work Phone: Plan of Treatment Date Care Activity Detail Author Start: 01-27-2050 Zoster Vaccines (1 of 2) Zoster Vaccines (1 of 2) [facility] Start: 05-20-2024 [facility] Start: 12-06-2021 Influenza vaccination [facility] Start: 02-01-2021 Urine microalbumin profile DTAP,TDAP,TD (7 - Td or Tdap) [facility] Start: 01-27-2021 PAP TESTING PAP TESTING [facility] Start: 01-27-2021 Screening for malignant neoplasm of cervix Pap Smear [facility] Start: 12-12-2020 COVID-19 VACCINE (2 - Pfizer 3-dose series) COVID-19 VACCINE (2 - Pfizer 3-dose series) [facility] Start: 01-27-2019 DTaP/Tdap/Td Vaccines (1 - Tdap) DTaP/Tdap/Td Vaccines (1 - Tdap) [facility] Start: 01-27-2018 CHLAMYDIA SCREENING (18-) CHLAMYDIA SCREENING (18-) [facility] Start: 01-27-2018 GC (GONORRHEA) SCREENING (18-) GC (GONORRHEA) SCREENING (18-) [facility] Start: 01-27-2018 HEPATITIS C SCREENING HEPATITIS C SCREENING [facility] Start: 01-27-2018 HIV SCREENING HIV SCREENING [facility] Start: 01-27-2014 PEDS TO ADULT TRANSITION ANNUAL ASSESSMENT PEDS TO ADULT TRANSITION ANNUAL ASSESSMENT [facility] Start: 2012 Adult depression screening assessment DEPRESSION SCREENING [facility] Start: 2012 PEDS TO ADULT TRANSITION INITIAL DISCUSSION PEDS TO ADULT TRANSITION INITIAL DISCUSSION [facility] Start: 01-27-2011 HPV VACCINE (1 - 2-dose series) HPV VACCINE (1 - 2-dose series) [facility] Start: 01-27-2011 HPV Vaccines (1 - 2-dose series) HPV Vaccines (1 - 2-dose series) [facility] Start: 01-27-2010 Meningococcal B Vaccine (1 of 2 - Risk Bexsero 2-dose series) Meningococcal B Vaccine (1 of 2 - Risk Bexsero 2-dose series) [facility] Start: 01-27-2010 MENINGOCOCCAL B: Consider based on risk (1 of 2 - Risk Bexsero 2-dose series) MENINGOCOCCAL B: Consider based on risk (1 of 2 - Risk Bexsero 2-dose series) [facility] Start: 01-27-2001 MMR Vaccines (1 of 1 - Standard series) MMR Vaccines (1 of 1 - Standard series) [facility] Start: 2000 COVID-19 Vaccine (#1) COVID-19 Vaccine (#1) [facility] Start: 2000 Hepatitis C screening Hepatitis C Screening [facility] Start: 2000 HIV screening HIV Screening [facility] Erythrocyte mean corpuscular volume determination [facility] Hematocrit [Volume Fraction] of Blood [facility] Hemoglobin [Mass/vol ume] in Blood [facility] Hemoglobin A1c/Hemoglobin.total in Blood [facility] Hepatitis B virus martinez rface Ag [Presence] in Serum [facility] Hepatitis C antibody measurement [facility] Leukocytes [#/volume ] in Blood [facility] Mean corpuscular hemoglobin concentration determination [facility] Mean corpuscular hemoglobin determination [facility] Neutrophil count [facility] Neutrophil percent differential count [facility] Patient Education ED Chest Wall Contusion ED Neck Sprain or Strain [facility] Work Phone: Patient referral [facility] Work Phone: Platelets [#/volume] in Blood [facility] Red blood cell count [facility] Red cell distributio n width determination [facility] Rubella IgG measurement [facility] Serologic test for syphilis [facility] [place] [place] Immunizations Immunization Date Immunization Notes Care Provider Joana kraft 01-30-2023 influenza, injectabl e, quadrivalent, preservative free DANIELLE SANTOS Work Phone: [facility] 12-13-2022 tetanus toxoid, redu daiana diphtheria toxoid, and acellular pertussis vaccine, adsorbed DANIELLE SANTOS Work Phone: [facility] 12-30-2020 influenza, injectabl e, quadrivalent, preservative free No Primary Care Physician [facility] 12-15-2020 Covid (Pfizer) No Primary Ca re Physician [facility] 11-21-2020 COVID-19 vaccine, ag e 12+ yr (PFIZER-[employer] - PURPLE TOP) Judith Butler APRN.[facility] Work Phone: [facility] Work Phone: 01-05-2020 influenza, injectabl e, quadrivalent, preservative free No Primary Care Physician [facility] 12-08-2019 meningococcal polysaccharide (groups A, C, Y and W-135) diphtheria toxoid conjugate vaccine (MCV4P) No Primary Care Physician [facility] 02-01-2011 meningococcal polysaccharide (groups A, C, Y and W-135) diphtheria toxoid conjugate vaccine (MCV4P) No Primary Care Physician [facility] 02-01-2011 Meningococcal, MCV4, unspecified conjugate formulation(groups A, C, Y and W-135) Judith Butler APRN.[facility] Work Phone: [facility] Work Phone: 02-01-2011 tetanus toxoid, redu daiana diphtheria toxoid, and acellular pertussis vaccine, adsorbed Judith Butler APRN.CHAIR INSPECTOR Work Phone: [facility] Work Phone: 04-04-2009 novel influenza-H1N1 -09, all formulations Judith Butler APRN.[facility] Work Phone: [facility] Work Phone: 03-06-2009 influenza virus vacc ine, unspecified formulation Judith Butler APRN.CHAIR INSPECTOR Work Phone: [facility] Work Phone: 03-07-2008 varicella virus vaccine Judith Butler APRN.CHAIR INSPECTOR Work Phone: [facility] Work Phone: 06-21-2005 diphtheria, tetanus toxoids and acellular pertussis vaccine Judith Butler APRN.CHAIR INSPECTOR Work Phone: [facility] Work Phone: 06-21-2005 measles, mumps and rubella virus vaccine Judith Butler APRN.[facility] Work Phone: [facility] Work Phone: 06-21-2005 poliovirus vaccine, inactivated Judith Butler APRN.CHAIR INSPECTOR Work Phone: [facility] Work Phone: 11-09-2001 varicella virus vaccine Judith Butler APRN.CHAIR INSPECTOR Work Phone: [facility] Work Phone: 06-04-2001 hepatitis B vaccine, pediatric or pediatric/adolescent dosage Judith Butler APRN.CHAIR INSPECTOR Work Phone: [facility] Work Phone: 05-04-2001 diphtheria, tetanus toxoids and acellular pertussis vaccine Judith Butler APRN.CHAIR INSPECTOR Work Phone: [facility] Work Phone: 05-04-2001 haemophilus influenz ae type b conjugate and Hepatitis B vaccine No Primary Care Physician [facility] 05-04-2001 haemophilus influenz ae type b vaccine, HbOC conjugate Judith Butler APRN.CHAIR INSPECTOR Work Phone: [facility] Work Phone: 02-23-2001 measles, mumps and rubella virus vaccine Judith Butler APRN.CHAIR INSPECTOR Work Phone: [facility] Work Phone: 02-23-2001 poliovirus vaccine, inactivated Judith Butler APRN.CHAIR INSPECTOR Work Phone: [facility] Work Phone: 2000 diphtheria, tetanus toxoids and acellular pertussis vaccine Judith Butler PRODUCE ASSISTANT.CHAIR INSPECTOR Work Phone: [facility] Work Phone: 2000 diphtheria, tetanus toxoids and acellular pertussis vaccine Judith Butler PRODUCE ASSISTANT.[facility] Work Phone: [facility] Work Phone: 2000 haemophilus influenz ae type b conjugate and Hepatitis B vaccine No Primary Care Physician [facility] 2000 haemophilus influenz ae type b vaccine, HbOC conjugate Judith Butler PRODUCE ASSISTANT.[facility] Work Phone: [facility] Work Phone: 2000 hepatitis B vaccine, pediatric or pediatric/adolescent dosage Judith Butler PRODUCE ASSISTANT.[facility] Work Phone: [facility] Work Phone: 2000 poliovirus vaccine, inactivated Judith Butler PRODUCE ASSISTANT.[facility] Work Phone: [facility] Work Phone: 2000 diphtheria, tetanus toxoids and acellular pertussis vaccine Judith Butler PRODUCE ASSISTANT.CHAIR INSPECTOR Work Phone: [facility] Work Phone: 2000 haemophilus influenz ae type b conjugate and Hepatitis B vaccine No Primary Care Physician [facility] 2000 haemophilus influenz ae type b vaccine, HbOC conjugate Judith Butler PRODUCE ASSISTANT.CHAIR INSPECTOR Work Phone: [facility] Work Phone: 2000 hepatitis B vaccine, pediatric or pediatric/adolescent dosage Judith Butler PRODUCE ASSISTANT.CHAIR INSPECTOR Work Phone: [facility] Work Phone: 2000 poliovirus vaccine, inactivated Judith Butler PRODUCE ASSISTANT.CHAIR INSPECTOR Work Phone: [facility] Work Phone: Payers Date Payer Category Payer Self-pay 2023 Unknown [id number] 2020 Unknown [employer] PPO [id number] 2020-Present [phone] [address] [place] [address] PPO [id number] Unknown [id number] Unknown [id number] Unknown [id number] Unknown [id number] [id number] Unknown [id number] [id number] Unknown [id number] [id number] Unknown [id number] [id number] Unknown [id number] [id number] Unknown [id number] [id number] Unknown [id number] [id number] Unknown [id number] [id number] Unknown [id number] 2.16.840.1.371952.3.579.2.462 Unknown [id number] [id number] Unknown [id number] [id number] Unknown [id number] [id number] Unknown [id number] [id number] Unknown [id number] [id number] Unknown [id number] [id number] Unknown [id number] [id number] Unknown [id number] [id number] Social History Date Type Detail Facility Start: 11-17-2012 End: 09-21-[address] [facility] Never smoked tobacco [facility] Start: 11-17-2012 Tobacco use and exposure Smokeless tobacco non-user [facility] Start: 11-21-2020 Alcohol intake Current non-dr qi specialist of alcohol (finding) [facility] Start: 2000 Sex Assigned At Not on file [facility] Tobacco smoking status [facility] Tobacco smoking consumption unknown [facility] Start: 11-27-2021 End: 12-07-2021 Exposure to SARS-CoV-2 (event) Not sure [facility] Start: 2000 Sex Assigned At Female W [facility] Start: 06-29-2024 Sex Female (finding) [facility] Clinical Notes 11-21-2020 to 09-30-2024 Note Date & Type Note Facility 09-30-[address] [facility] 08-11-2024 Evaluation note Diagnosis Onset Date Resolution Infertility associated with anovulation acute August 11, 2024 1 1:38am PCOS (polycystic ovarian syndrome) acute August 11, 2024 11:38am [facility] Work Phone: 1(732) 343-896705-07-2025 Evaluation note* Diagnosis Onset Date Resolution Status Admit Date Infertility associated with anovulation acute August 11, 2024 11 :38am PCOS (polycystic ovarian syndrome) a cute August 11, 2024 11:38am Dysuria acute August 26, 2024 3:59pm [facility] Work Phone: 1(117) 711-848905-07-2025 Evaluation note* Diagnosis Onset Date Resolution Status Admit Date Infertility associated with anovulation resolved August 11, 2024 11 :38am PCOS (polycystic ovarian syndrome) resolved August 11, 2024 11 :38am Dysuria resolved August 26, 2024 3:59pm Anxiety acute September 30 8:36am acute September 30 8:36am Supervision of normal acut e September 30, 2024 8:36am Vaginal bleeding during acute September 30, 2024 8:36am [facility] Work Phone: 1(921) 766-565905-05-2025 Radiology Diagnostic study note [facility] Imaging Services [address] [place], [place] [id number] Salpingogram MR#: [id number] Acct: [id number] Name: CAROLINA MARTINEZ Rep #: [id number] : 2000 F 24 From: Muriel Alex MD PCP: Dr. Nadine Little MD Status: REG CLI Study:Salpingogram Date of Exam: 5 Exam# [id number] Ordering Dr: Mimi Castillo NP PROCEDURE: SALPINGOGRAM 08/04/2024 REASON FOR EXAM: INFERTILITY TECHNIQUE: One (1) Cine series/run COMPARISON: No relevant prior. FINDINGS: Uterus: Balloon tipped catheter seen in the lower uterine segment. No abnormal intrauterine filling defects. No uterine cornua abnormalities. Fallopian tubes: Normal caliber. Prompt spillage of contrast from the fallopiantubes. Fluoroscopy: 39 sec Dose: 4.93 mGy RAD/Salpingogram IMPRESSION: 1. Normal hysterosalpingogram. Reading Location: [facility] CC: HUMBERTO Castillo; Dr. Nadine Little MD ~ Condenser Cleaner: Signed [facility]04-30-2025 Procedure note [facility] Medical Records Department [address] [place] [address] Procedure Report 08/04/24 1231 MR#: [id number] Acct: [id number] Name: CAROLINA MARTINEZ Rep #:[id number] : 2000 24 From: Leanne Griffin DO PCP: Dr. Nadine Little MD Status:REG CLI Location: [facility] Multi Select Codes Urinary/Genital Urinary/Genital CPT Codes: 89109 HSG/SIS Non-invasive Procedural Procedure Information Date of Procedure: 08/04/24 Pre-Procedure Diagnosis: infertility Post-Procedure Diagnosis: infertility Procedure Performed:: hysterosalpingogram exercise science internship: No Description of procedure: Preop diagnosis: Infertility Postop diagnosis:Infertility , bilateral tubal patency Procedure: Hysterosalpingogram Surgeon:Leanne Griffin DO Implantable devices: None Complications: None Findings: Bilateral tubal patency and normal uterine cavity Operative details: Patient was taken to the x-ray room and was placed on the x- ray table and was inthe dorsal lithotomy position. Speculum was placed in the vagina and the cervix prepped with Betadine and the HSG catheter was easily introduced into the uterus and speculum removed. Radiologist was brought in andwhile pushing radiopaque dye into the uterus via the HSG catheter the radiologist tookmultiple images and views and confirmed bilateral tubal patency seen. No gross uterine filling defects or abnormalities were seen. All instruments removed from the vagina and the uterus without complication. Patient tolerated the procedure well. Procedure findings: it appears that there are patent bilateral fallopian tubes, normal uterus, normal cervix. Complications Complications: No 08/04/24 1248 Cosigner Signature (if applicable): CC: HUMBERTO Castillo; Dr. Nadine Little MD; Dr. Leanne Griffin DO~ Signed [facility]12-18-2024 Evaluation note* Diagnosis Onset Date Resolution Status Admit Date Establishing care with new doctor, encounter for noneactive March 072023 8:55am Influenza vaccination declined noneactive March 24, 2 024 8:55am Infertility noneactive March 8:55am Annual physical exam noneactive Dece mber 2023 8:55am [facility] Work Phone: 1(140) 299-840609-02-2022 History of Present illness Narrative* Edmund Arita PA-C - 12/07/2021 7:45 PM EDT Subjective Patient ID: Carolina Berg is a 21 y.o. female. Patient presents with increased urinary urgency and frequency. She has small amounts of urine come out. She has some dysuria now as well. Denies fever, low back pain. Symptoms initially started last week and temporarily improved but then returned today. The following portions of the chart were reviewed this encounter and updated as appropriate: Review of Systems Genitourinary: Positive for dysuria and urgency. Negative for flank pain. Objective Physical Exam Vitals and nursing note reviewed. Constitutional: General: She is not in acute distress. Appearance: She is not toxic-appearing. HENT: Head: Normocephalic and atraumatic. Eyes: Conjunctiva/sclera: Conjunctivae normal. Cardiovascular: Rate and Rhythm: Normal rate and regular rhythm. Heart sounds: Normal heart sounds. Pulmonary: Effort: Pulmonary effort is normal. No respiratory distress. Breath sounds: Normal breath sounds. Abdominal: General: There is no distension. Tenderness: There is no right CVA tenderness or left CVA tenderness. Skin: General: Skin is warm and dry. Neurological: General: No focal deficit present. Mental Status: She is alert and oriented to person, place, and time. Procedures Assessment/Plan Diagnoses and all orders for this visit: Dysuria - POCT urinalysis dipstick manually resulted Urinary urgency Other orders - nitrofurantoin, macrocrystal-monohydrate, (Macrobid) 100 mg capsule; Take 1 capsule (100 mg total) by mouth every 12 (twelve) hours for 5 days. - phenazopyridine (Pyridium) 200 mg tablet; Take 1 tablet (200 mg total) by mouth 3 (three) times aday with meals for 3 days. * Missy Brunson LPN - 12/07/2021 7:45 PM EDT Pt presents c/o urinary frequency and pressure for about 2 days. Denies NVD or lower back pain. documented in [facility] Instructions* Patient Instructions* Edmund Arita PA-C - 12/07/2021 7:45 PM EDT Images from the original note were not included. Patient Education Urinary Tract Infection (UTI; Lower UTI) Definition A urinary tract infection (UTI) is an infection in any part of the urinary system including: Upper tract: ? Kidneys ? Ureter tubes from kidneys to bladder Lower tract: ? Bladder ? Urethra tubes from bladder that lets urine pass out of the body The infection can cause swelling in the tract. This makes it painful to pass urine. The infection may be named for the specific area of the urinary tract that it effects: Uretheral infection urethritis Bladder infection cystitis Kidney infection pyelonephritis The Urinary Tract Copyright 2002 [employer]. All rights reserved. Causes UTIs are caused by bacteria. The bacteria cling to the opening of the urethra. There they begin to grow and spread. The infection can then move up into the bladder. If the infection is not treated itcan spread to the kidney. It can then lead to a severe kidney infection. The bacteria often come from the colon or vagina. They are passed or moved toward the urethra. Risk Factors UTIs are more common in women. Other things that may increase your chance of a UTI include: Being sexually active Use of spermicide New sexual partner History of UTIs in sister, mother, or daughter Some conditions may increase the chance of a UTI: Diabetes Weak immune system Menopause Bladder catheter in place or recently used Neurogenic bladder Renal insufficiency Kidney stones Problems in the urinary tract that slow the flow of urine, such as vesicoureteral reflux or polycystic kidneys History of kidney transplant Tumor Symptoms Some may not have any symptoms. Those that do have symptoms may have: Urgent need to urinate Small amounts of urine during urination Pain in the abdomen or pelvic area Burning sensation during urination Cloudy, bad-smelling urine Increased need to get up at night to urinate Leaking of urine Fever and chills Nausea and low desire to eat An infection in the kidney can be more serious. Call your doctor right away if you have symptoms ofa kidney infection, such as: Bloody urine Low back pain or pain along the side of the ribs High fever and chills Diagnosis The doctor will ask about symptoms and past health. A physical exam will also be done. Urine will be tested for signs of infection. Frequent infections may be caused by a blockage or structure issues. Images of the urinary tract may be taken with: CT scan Ultrasound Treatment UTIs are treated with antibiotics. They can start to ease symptoms within 1 to 2 days. It is important to take all of the medicine, even if you feel better. A hospital stay may be needed with a severe infection. The antibiotics can then be delivered through an IV. The infection may cause pain and spasms in the bladder. Medicine can help to ease spasms. Prevention To help decrease the risk of a UTI: Empty your bladder completely after sex. Drink a full glass of water. Drink plenty of fluids throughout the day. Last Reviewed: December 2019 [facility] Medical Review Board Nancy Teague MD Updated: 10/08/2019 [facility] -I have sent in for macrobid and pyridium for the urinary symptoms documented in this encounter[facility] NoteHNO ID: [id number] Author: Judith Butler APRN.CHAIR INSPECTOR Service: ? Author Type: Nurse Practitioner Type: Progress Notes Filed: 11/21/2020 1:43 PM Note Text: Carolina is a 20 year old who presents for an annual gynecologic exam without complaints. Getting and graduating from [employer] [facility] for ultrasound - both in August. Presents: with parent Menses: cycles every 28 days and 2-3 days of flow. Contraception: combined hormonal contraceptives HPV vaccine: No Last pap smear: never Sexually active: Never OB History T0 L0 SAB0 TAB0 Ectopic0 Multiple0 Live Births0 PAST MEDICAL HISTORY Diagnosis Date - Acid reflux - acne PAST SURGICAL HISTORY Procedure Laterality Date - NONE FAMILY HISTORY Problem Relation Age of Onset - Asthma Brother - Allergies Brother - Hypertension Mother - Hyperlipidemia Mother - Hypertension Father - other (Gastric Ulcer) Father - other (Reflux) Father - Hypertension Maternal Grandmother - Hypertension Maternal Grandfather - Diabetes Paternal Grandmother - GI Paternal Grandmother - Breast Cancer Paternal Grandmother 65 - Diabetes Paternal Grandfather - Heart Paternal Grandfather MA - No Known Problems Sister - Asthma Brother - Allergies Brother SOCIAL HISTORY Social History Tobacco Use - Smoking status: Never Smoker - Smokeless tobacco: Never Used Vaping Use - Vaping Use: Never used Substance Use Topics - Alcohol use: No - Drug use: No REVIEW OF SYSTEMS Abdomen: No bloating, early satiety, indigestion, or increased flatulence. No abdominal pain, nausea, vomiting, diarrhea, or constipation. Bladder: No dysuria, gross hematuria, urinary frequency, urinary urgency, or incontinence. Breast: No breast lumps, nipple d/c, overlying skin changes, redness or skin retraction. Allergies and current medication updated:Yes EXAM: BP 116/68 Ht 5' 2.5 (1.59m) Wt 120 lb (54.4kg) LMP 11/02/2020 BMI 21.59 kg/(m2). GENERAL: pleasant, in no apparent distress HEENT: Normocephalic, atraumatic, mucus membranes moist and no lesions NECK: Supple, full range of motion, no adenopathy and thyroid normal DERMATOLOGY: Normal, without lesions, non-icteric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
== END | disposition home or self-care (01) ==
PROVIDERS: Obstetrics & Gynecology; PCP Internal Medicine; Referring Provider Obstetrics & Gynecology; Visit Provider Obstetrics & Gynecology
DX: O99.280 Endocrine, nutritional and metabolic diseases complicating pregnancy, unspecified trimester (principal); E28.2 Polycystic ovarian syndrome; O46.90 Antepartum hemorrhage, unspecified, unspecified trimester; Z3A.00 Weeks of gestation of pregnancy not specified
CPT/HCPCS: 36415; 83036; 85025; 86703; 86762; 86780; 86803; 86850; 86900; 86901; 87070; 87205; 87340

== ENCOUNTER → 2024-10-04 | Outpatient (CLI) | payer OTHER, SELFPAY | END | disposition home or self-care (01) | LOC: LABSPEC 16:38 | PROVIDERS: PCP Internal Medicine; Referring Provider Obstetrics & Gynecology; Visit Provider Obstetrics & Gynecology | DX: Z34.90 Encounter for supervision of normal pregnancy, unspecified, unspecified trimester (principal) | CPT/HCPCS: 87086; 87491; 87591 ==

== ENCOUNTER → 2024-10-12 | Outpatient (CLI) | payer OTHER, SELFPAY ==
--- NOTE | 2024-10-12 11:01 | US_ITS ---
EXAM: US First Trimester , Transabdominal and Transvaginal CLINICAL INDICATION: BLEEDING IN PREG TECHNIQUE: Real-time transabdominal and transvaginal obstetrical ultrasound of the maternal pelvis and a first trimester with image documentation. Transvaginal imaging was used for better evaluation of the fetus and adnexa. COMPARISON: No relevant prior studies available. FINDINGS: GESTATION: Yolk sac 0.5 cm. CRL 4.6 cm. Gestational age 11 weeks and 2 days. heart rate 169 beats per minute. Gestational sac 5.1 cm. BENJAMIN: BENJAMIN 05/03/2025. PLACENTA/AMNIOTIC FLUID: Subchorionic bleed measuring up to 1.6 cm. UTERUS/CERVIX: Cervix closed. No myometrial mass. The uterus measures 9.3 x 10.4 x 7.0 cm. OVARIES: Unremarkable. No mass. The right ovary measures 3.2 x 2.3 x 2.4 cm. The left ovary measures 4.1 x 2.1 x 1.7 cm. FREE FLUID: No free fluid. US/Transvaginal w/Preg US IMPRESSION: A single live intrauterine as above. Reading Location: [facility]
== END | disposition home or self-care (01) ==
LOC: US 11:00
PROVIDERS: PCP Internal Medicine; Referring Provider Advanced Practice Midwife; Visit Provider Advanced Practice Midwife
DX: O20.9 Hemorrhage in early pregnancy, unspecified (principal); Z3A.11 11 weeks gestation of pregnancy
CPT/HCPCS: 76817